=== PATIENT | male | born 1980 | race Caucasian/White ===

== ENCOUNTER → 2019-12-04 14:14 | Outpatient (CLI) | payer OTHER, MEDICAID, SELFPAY ==
--- NOTE | 2019-12-04 14:16 | DI.RAD.S_ITS ---
PROCEDURE: XR CHEST 2V INDICATIONS: Report of nodule on lung a few months ago TECHNIQUE: 2 views of the chest were acquired. COMPARISON: Outside Facility, RG, XR CXR 1V, 09/21/2019, 3:41. FINDINGS: Surgical changes and devices: None. Lungs and pleura: The nodular density in the left lung base seen on the comparison chest x-rays not visualized on the current exam. Lungs are clear. No pleural effusions or pneumothorax. Mediastinum: Mediastinal contours are normal. Heart size is normal. Bones and chest wall: No suspicious bony abnormalities. Soft tissues appear unremarkable. IMPRESSION: No acute cardiopulmonary disease. The nodular density in the left lung base seen on the last exam is no longer visualized. Dictated by: Iqra Carvalho M.D. on 12/10/2019 at 11:51 Approved by: Iqra Carvalho M.D. on 12/10/2019 at 11:54
== END ==
PROVIDERS: PCP Family Medicine; Referring Provider Family Medicine; Visit Provider Family Medicine
DX: R91.1 Solitary pulmonary nodule (principal)
CPT/HCPCS: 71046